=== PATIENT | female | born 1990 ===

== ENCOUNTER 2021-01-28 05:34 | Inpatient (IN) | payer OTHER ==
[~2021-01-28] VITALS: Ht 172.7 cm; Wt 92.7 kg
[2021-01-28] VITALS (20 sets, daily range): BP systolic 112–146; BP diastolic 44–99; PULSE 64–95; TEMP 97.7–98.1
--- NOTE | 2021-01-28 05:40 | NUR ---
Pt ambulatory to 209 for scheduled . Clean gown on. EFM and TOCO explained and applied. Pt denies leaking of fluids or vaginal bleeding. Reports good movement. Pt also reports irregular contractions. Plan of care explained.
[2021-01-28] MEDS ORDERED: AMITRIPTYLINE H10 M1 PO (06:40)
[2021-01-28] MEDS ORDERED: PRENATAL TABLET PO (06:41)
[2021-01-28 06:58] LABS: HEMATOCRIT 31.2 % (37.0-47.0); HEMOGLOBIN 10.8 g/dl (12.5-16.0); MEAN CELL VOLUME 92 fl (80.0-100.0); MEAN CORPUSCULAR HEMOGLOBIN 32 pg (27.0-31.0); MEAN CORPUSCULAR HGB CONC 35 g/dl (33.0-37.0); MEAN PLATELET VOLUME 10.6 fl (7.4-10.4); PLATELET COUNT 275 K/mm3 (130-400); RED BLOOD COUNT 3.41 M/mm3 (4.10-5.30)
[2021-01-28 07:30] LABS: BAND 4 % (0-10); EOSINOPHIL 5 % (0-4); LYMPHOCYTE 21 % (20.0-51.0); METAMYELOCYTE 1 % (0-0); NEUTROPHILS 62 % (42.0-75.2); PLATELET ESTIMATE NORMAL (NORMAL)
[2021-01-28] MEDS ORDERED: PERCOCET 325 MG1 TA2 PO (08:37)
[2021-01-28] MEDS ORDERED: MOTRIN 800800 MG/TAB PO (08:37)
--- NOTE | 2021-01-28 20:00 | NUR ---
MOM REQUEST A PUMP SINCE [facility]- EXPLAINED THAT THE BABY WAS THE BEST PUMP AND THAT SOMETIMES THE PUMP DOES NOT PRODUCE MUCH COLOSTRUM- MOM UNDERSTANDS BUT WANTS TO BE ABLE TO HAVE SOME ADDED STIMULATION
--- NOTE | 2021-01-28 23:13 | NUR ---
PT CALLS OUT AND REPORTS INCREASED PAIN TO ABDOMEN, ATTEMPTED TO RELIEVE PAIN BY USING BATHROOM BUT PAIN STILL INCREASED. SECOND TAB OF PRN PAIN MEDICATION ADMINISTERED.
--- NOTE | 2021-01-29 03:20 | NUR ---
PT AWAKENS UPON THIS NURSE ENTERING ROOM WITH BABY. PT REPORTS IMPROVEMENT OF PAIN TO ABD AFTER AMBULATING, USING HEAT PAD, AND SLEEPING ON SIDE. PT NOW RATES PAIN 3 OUT OF 10, REQUESTS TO CONTINUE WITH PAIN MEDICATION AVAILABLE TO "STAY ON TOP OF THE PAIN."
[2021-01-29 04:00] VITALS: BP 116/77; PULSE 74; TEMP 98.7
[2021-01-29 09:09] VITALS: BP 114/68; PULSE 76; TEMP 98.3
[2021-01-29 17:00] VITALS: BP 114/68; PULSE 76; TEMP 98.2
--- NOTE | 2021-01-29 18:40 | NUR ---
Report recieved. Resting in bed at this time. Updated whiteboard and reviewed POC. Questions invited and answered.
[2021-01-29 19:00] VITALS: BP 104/80; PULSE 81; TEMP 97.8
[2021-01-30 08:40] VITALS: BP 121/90; PULSE 83; TEMP 98.4
== END 2021-01-30 12:00 | disposition home or self-care (01) | DRG 787 ==
LOC: OB 05:34
PROVIDERS: ADMIT Obstetrics & Gynecology
PROC: 10D00Z1 Extraction of Products of Conception, Low, Open Approach (ICD-10-PCS; principal; 2021-01-28)
DX: O34.211 Maternal care for low transverse scar from previous cesarean delivery (principal); O99.354 Diseases of the nervous system complicating childbirth; G43.909 Migraine, unspecified, not intractable, without status migrainosus; Z3A.39 39 weeks gestation of pregnancy; Z37.0 Single live birth
CPT/HCPCS: J0690; J1885; J2370; J2405; J2590; J7120

== ENCOUNTER 2023-07-11 06:39 | Inpatient (IN) | payer OTHER ==
[~2023-07-11] VITALS: Ht 172.7 cm; Wt 96.4 kg
[2023-07-11] VITALS (15 sets, daily range): BP systolic 94–126; BP diastolic 44–77; PULSE 68–86; TEMP 98–98.5
[~2023-07-11 06:39] MED LIST: AMITRIPTYLINE H10 M1 PO; MOTRIN 800800 MG/TAB PO; PERCOCET 325 MG1 TA2 PO; PRENATAL TABLET PO
[2023-07-11] MEDS ORDERED: LR 1,000 ML IV SCH ×2 (07:30→08:30)
[2023-07-11] MEDS ORDERED: Azithromycin 500 MG in NS 250 ML IV ONE (07:30)
[2023-07-11 07:41] LABS: BASO % 0.5 % (0.0-2.0); EOS # 0.1 K/mm3 (0.0-0.7); EOS % 1.5 % (0.0-4.0); GRAN # 6.2 K/mm3 (1.4-6.5); GRAN % 77.2 % (42.2-75.2); HEMATOCRIT 38.3 % (37.0-47.0); HEMOGLOBIN 12.2 g/dl (12.5-16.0); LYMPH # 1.1 K/mm3 (1.2-3.4); LYMPH % 13.6 % (20.0-51.0); MEAN CELL VOLUME 101 fl (80.0-100.0); MEAN CORPUSCULAR HEMOGLOBIN 32 pg (27-31); MEAN CORPUSCULAR HGB CONC 32 g/dl (33.0-37.0); MEAN PLATELET VOLUME 9.2 fl (7.4-10.4); MONO # 0.5 K/mm3 (0.1-0.6); MONO % 6.5 % (1.7-9.3); PLATELET COUNT 298 K/mm3 (130-400); RED BLOOD COUNT 3.78 M/mm3 (4.10-5.30); REDCELL DISTRIBUTION WIDTH-CV 13.2 % (11.5-14.5)
[2023-07-11] MEDS ORDERED: Meperidine 50 MG/ML 1 ML VIAL IV PRN (08:30)
[2023-07-11] MEDS ORDERED: Ondansetron 4 MG/2 ML VIAL IV PRN ×2 (08:30→08:45)
[2023-07-11] MEDS ORDERED: Ondansetron 4 MG/2 ML VIAL IV SCH (08:30)
[2023-07-11] MEDS ORDERED: Ketorolac 30 MG/ML VIAL ONE (08:37)
[2023-07-11] MEDS ORDERED: dexAMETHasone 10 MG/ML VIAL ONE (08:37)
[2023-07-11] MEDS ORDERED: Oxytocin 10 UNITS/ML VIAL ONE (08:37)
[2023-07-11] MEDS ORDERED: NS 30 ML IV ONE (08:37)
[2023-07-11] MEDS ORDERED: Phenylephrine 10 MG/ML VIAL ONE (08:37)
[2023-07-11] MEDS ORDERED: Naloxone 0.4 MG/ML VIAL IV PRN (08:45)
[2023-07-11] MEDS ORDERED: Loratadine 10 MG TAB PO PRN (08:45)
[2023-07-11] MEDS ORDERED: oxyCODONE 5 MG TAB PO PRN (08:45)
[2023-07-11] MEDS ORDERED: Acetaminophen 500 MG TAB PO SCH (08:45)
[2023-07-11] MEDS ORDERED: Measles/Mumps/Rubella Virus Vaccine Live w Diluent 0.5 ML VIAL SQ SCH (08:45)
[2023-07-11] MEDS ORDERED: LR 1,000 ML IV PRN (08:45)
[2023-07-11] MEDS ORDERED: Magnes Hydrox (MOM) 80 MG/ML 30 ML CUP PO PRN (08:45)
[2023-07-11] MEDS ORDERED: EPINEPHrine 1 MG/1 ML Ampule ONE (09:15)
[2023-07-11] MEDS ORDERED: Ibuprofen 800 MG TAB PO SCH (14:31)
--- NOTE | 2023-07-11 16:14 | NUR ---
1600 RN BEDSIDE; PT DANGLES FOR 10 MINUTES. PLAN TO AMBULATE TO BATHROOM AT 1700
[2023-07-11] MEDS ORDERED: Sennosides/Docusate 8.6-50 MG TAB PO SCH (17:00)
--- NOTE | 2023-07-11 17:11 | NUR ---
1700 RN ASSISTS PT AMBULATING TO BATHROOM, PT AMBULATES WITH STAND BY ASSIST. DAVIAN CARE PERFORMED.
[2023-07-11] MEDS ORDERED: traZODone 50 MG TAB PO PRN (21:00)
[2023-07-12 00:15] VITALS: BP 139/73; PULSE 62; TEMP 97.8
[2023-07-12 04:00] VITALS: BP 117/60; PULSE 75; TEMP 98.1
[2023-07-12 07:30] VITALS: BP 109/73; PULSE 81; TEMP 98.3
[2023-07-12 13:59] VITALS: BP 120/67; PULSE 80; TEMP 97.7
[2023-07-12 16:37] VITALS: BP 128/71; PULSE 72; TEMP 98.2
[2023-07-12 19:36] VITALS: BP 120/79; PULSE 76; TEMP 98.4
[2023-07-13 08:00] VITALS: BP 116/77; PULSE 69; TEMP 97.9
== END 2023-07-13 12:15 | disposition home or self-care (01) | DRG 540 ==
LOC: LDRO 06:39 → LDR 07:32 → OB 07:32
PROVIDERS: ADMIT Obstetrics & Gynecology
PROC: 10D00Z1 Extraction of Products of Conception, Low, Open Approach (ICD-10-PCS; principal; 2023-07-11)
DX: O34.211 Maternal care for low transverse scar from previous cesarean delivery (principal); Z37.0 Single live birth; O99.354 Diseases of the nervous system complicating childbirth; G43.909 Migraine, unspecified, not intractable, without status migrainosus; Z3A.39 39 weeks gestation of pregnancy
CPT/HCPCS: J0171; J0456; J0665; J0690; J1100; J1885; J2371; J2405; J2590; J7050; J7120